=== PATIENT | female | born 1995 | race Caucasian/White ===

== ENCOUNTER 2017-04-04 13:23 | Emergency (ER) | payer BC ==
[2017-04-04] MEDS ORDERED: Acetaminophen TAB* 325 MG PO ONE (16:46)
[2017-04-04] MEDS ORDERED: NS 0.9% 1000 ML* 1,000 ML IV ONE (17:14)
[2017-04-04 17:48] LABS: Hematocrit 44 % (35-47); Hemoglobin 14.6 g/dl (12.0-16.0); Mean Corpuscular HGB Conc 33 g/dl (31-36); Mean Corpuscular Hemoglobin 29 pg (27-31); Mean Corpuscular Volume 87 fL (80-97); Mean Platelet Volume 8 um3 (7.4-10.4); Red Blood Count 5.04 10^6/ul (4.0-5.4); Red Cell Distribution Width 13 % (10.5-15); White Blood Count 11.1 10^3/ul (3.5-10.8)
[2017-04-04 18:07] LABS: ALT 37 U/L (7-52); AST 29 U/L (13-39); Albumin 4.7 g/dL (3.2-5.2); Alkaline Phosphatase 91 U/L (34-104); Anion Gap 8 mmol/L (2-11); BUN/Creatinine Ratio 12.7 (8-20); Blood Urea Nitrogen 9 mg/dL (6-24); CO2 Carbon Dioxide 24 mmol/L (22-32); Calcium 9.7 mg/dL (8.6-10.3); Chloride 104 mmol/L (101-111); EGFR African American 132.4 (>60); EGFR Non-African American 102.9 (>60); Globulin 3.1 g/dL (2-4); Glucose 84 mg/dL (70-100); Potassium 3.8 mmol/L (3.5-5.0); Sodium 136 mmol/L (133-145); Total Protein 7.8 g/dL (6.4-8.9)
[2017-04-04] MEDS ORDERED: Iohexol 350* (CONTRAST) 500 ML MDV IV ONE (18:12)
[2017-04-04 18:49] LABS: Erythrocyte Sed Rate 41 mm/Hr (0-14)
[2017-04-04 19:08] LABS: TSH (Thyroid Stimulating Horm) 2.05 mcIU/mL (0.34-5.60)
--- NOTE | 2017-04-04 19:11 | RAD ---
HISTORY: Blurred vision left eye COMPARISONS: None TECHNIQUE: Multiple contiguous axial CT scans were obtained of the head both before and after the administration of nonionic intravenous contrast timed to the systemic arterial phase of contrast enhancement. Coronal and sagittal multiplanar reformations are submitted for review. Multiple 3-D maximum intensity projection reconstructions are also submitted for review. FINDINGS: RIGHT VERTEBRAL ARTERY: The distal right vertebral artery is unremarkable, without stenosis. LEFT VERTEBRAL ARTERY: The distal left vertebral artery is unremarkable, without stenosis. DOMINANCE: The vertebral arteries are codominant. DISTAL RIGHT CERVICAL INTERNAL CAROTID ARTERY: The distal right cervical internal carotid artery is unremarkable. DISTAL LEFT CERVICAL INTERNAL CAROTID ARTERY: The distal left cervical internal carotid artery is unremarkable. INTRACRANIAL CIRCULATION: There is no aneurysm, vascular malformation, occlusion, or stenosis of the visualized intracranial circulation. The anterior communicating artery complex is clear. There is a origin of the right posterior cerebral artery. VENOUS CIRCULATION: The venous system is unremarkable. PERFUSION: There is no obvious parenchymal perfusion deficit. HEMORRHAGE/INFARCT: There is no hemorrhage or acute infarct. MASSES/SHIFT: There is no mass or shift. EXTRA-AXIAL SPACES: There are no extra-axial fluid collections. SULCI AND VENTRICLES: The sulci and ventricles are normal in size and position for the patient's stated age. CEREBRUM: There are no focal parenchymal abnormalities. BRAINSTEM: There are no focal parenchymal abnormalities. CEREBELLUM: There are no focal parenchymal abnormalities. PARANASAL SINUSES: The paranasal sinuses are clear. ORBITS: The orbits are unremarkable. BONES AND SOFT TISSUE: No bone or soft tissue abnormalities are noted. OTHER: There is no abnormal enhancement. IMPRESSION: 1. NO ACUTE INTRACRANIAL PATHOLOGY. 2. NO ANEURYSM, VASCULAR MALFORMATION, OCCLUSION, OR STENOSIS OF THE VISUALIZED INTRACRANIAL CIRCULATION.
--- NOTE | 2017-04-04 20:21 | ED ---
Ag Aguirre Anna, scribed for Stephen Mills MD on 04/04/17 at 1621 . Headache - HPI Summary HPI Summary: Patient is a 22 y/o female coming to [facility] presenting with an intermittent BAUER that began yesterday. She had a BAUER briefly yesterday. Today, she noticed the pain at 0840. The pain was worse today and accompanied by cloudy, blurred vision in her left eye. The worst of the pain was of severity 6/10, currently 2/ 10 and located in the frontal region. The blurred vision is intermittent. She has additionally had dizziness and neck pain between her shoulders. It hurts to move her head. She denies photophobia, sore throat, sinus pain, rhinorrhea, and cough. She takes Lexapro for bipolar disorder but no other medication. She has not tried any pain medication for this pain. She cannot think of any new activities that might have triggered the pain. She went to the [facility] at 1200 today, and they recommended she be seen in the ED. She has never had a migraine before. She wears glasses. Patient medications have been reviewed this visit. - History Of Current Complaint Chief Complaint: EDHeadache Stated Complaint: HEAD AND NECK PAIN Time Seen by Provider: 04/04/17 16:09 Hx Obtained From: Patient Onset/Duration: Sudden Onset, Started days ago, Still Present, Worse Since - today Currently Pain Is: Current Pain Scale(0-10)= - 2/10 - Allergies/Home Medications Allergies/Adverse Reactions: Allergies Allergy/AdvReac Type Severity Reaction Status Date / Time No Known Allergies Allergy Verified 04/04/17 13:30 Home Medications: Home Medications Escitalopram (NF) [Lexapro (NF)] 10 mg PO DAILY 04/04/17 [History Confirmed 03/18] PMH/Surg Hx/FS Hx/Imm Hx Cardiovascular History: Denies: Hx Myocardial Infarction Respiratory History: Denies: Hx Chronic Obstructive Pulmonary Disease (COPD) Sensory History: Reports: Other Sensory Impairments - Per group segment consultant, white spot when looking at optic nerve, benign Psychiatric History: Reports: Hx Bipolar Disorder, Other Psychiatric Issues/ Disorders - OCD Infectious Disease History: No Infectious Disease History: Denies: Traveled Outside the [place] in Last 30 Days - Family History Known Family History: Negative: Cardiac Disease, Hypertension, Diabetes, Other - Denies known neurological history - Social History Occupation: Student Lives: With Family Alcohol Use: None Substance Use Type: Reports: None Smoking Status (MU): Never Smoked Tobacco Review of Systems Negative: Fever, Chills Positive: Blurred Vision. Negative: Photophobia Negative: Sore Throat, Nasal Discharge Negative: Cough Negative: Nausea Positive: Arthralgia Neurological: Other - dizziness Positive: Headache All Other Systems Reviewed And Are Negative: Yes Physical Exam Triage Information Reviewed: Yes Vital Signs On Initial Exam: Initial Vitals Temp Pulse Resp BP Pulse Ox 98.1 F 78 18 117/91 99 04/04/17 13:27 04/04/17 13:27 04/04/17 13:27 04/04/17 13:27 04/04/17 13:27 Vital Signs Reviewed: Yes Appearance: Positive: Well-Appearing, No Pain Distress Skin: Positive: Warm, Skin Color Reflects Adequate Perfusion, Dry Head/Face: Positive: Normal Head/Face Inspection, Other - NO TEMPORAL ARTERY TENDERNESS Eyes: Positive: EOMI, BELLA, Other: - White areas around both her optic nerves. Full visual tafoya intact for right eye. With the left area, lateral visual field is blurred. ENT: Positive: Normal ENT inspection Neck: Positive: Supple - Full range of motion. Complains of increased pain when turning head to left., Nontender Respiratory/Lung Sounds: Positive: Clear to Auscultation, Breath Sounds Present Cardiovascular: Positive: RRR Abdomen Description: Positive: Nontender, Soft Bowel Sounds: Positive: Present Musculoskeletal: Positive: Normal, Strength/ROM Intact Neurological: Positive: Normal, Sensory/Motor Intact, Alert, Oriented to Person Place, Time Psychiatric: Positive: Affect/Mood Appropriate - Caitlyn Coma Scale Coma Scale Total: 15 Diagnostics - Vital Signs Vital Signs Temp Pulse Resp BP Pulse Ox 04/04/17 15:43 98.1 F 69 16 137/67 100 04/04/17 14:38 98.1 F 69 16 137/67 100 04/04/17 13:27 98.1 F 78 18 117/91 99 - Laboratory Lab Results: Lab Results 04/04/17 04/04/17 04/04/17 Range/Units 17:34 17:34 17:34 WBC 11.1 H (3.5-10.8) 10^3/ul RBC 5.04 (4.0-5.4) 10^6/ul Hgb 14.6 (12.0-16.0) g/dl Hct 44 (35-47) % MCV 87 (80-97) fL MCH 29 (27-31) pg MCHC 33 (31-36) g/dl RDW 13 (10.5-15) % Plt Count 278 (150-450) 10^3/ul MPV 8 (7.4-10.4) um3 Neut % (Auto) 67.8 (38-83) % Lymph % (Auto) 24.2 L (25-47) % [place] % (Auto) 6.4 (1-9) % Eos % (Auto) 1.0 (0-6) % Baso % (Auto) 0.6 (0-2) % Absolute Neuts (auto) 7.5 (1.5-7.7) 10^3/ul Absolute Lymphs (auto) 2.7 (1.0-4.8) 10^3/ul Absolute Monos (auto) 0.7 (0-0.8) 10^3/ul Absolute Eos (auto) 0.1 (0-0.6) 10^3/ul Absolute Basos (auto) 0.1 (0-0.2) 10^3/ul Absolute Nucleated RBC 0.01 10^3/ul Nucleated RBC % 0 ESR 41 H (0-14) mm/Hr INR (Anticoag Therapy) 0.94 (0.89-1.11) APTT 32.5 (26.0-36.3) seconds Sodium 136 (133-145) mmol/L Potassium 3.8 (3.5-5.0) mmol/L Chloride 104 (101-111) mmol/L Carbon Dioxide 24 (22-32) mmol/L Anion Gap 8 (2-11) mmol/L BUN 9 (6-24) mg/dL Creatinine 0.71 (0.51-0.95) mg/dL Est GFR ( Amer) 132.4 (>60) Est GFR (Non-Af Amer) 102.9 (>60) BUN/Creatinine Ratio 12.7 (8-20) Glucose 84 (70-100) mg/dL Calcium 9.7 (8.6-10.3) mg/dL Total Bilirubin 0.50 (0.2-1.0) mg/dL AST 29 (13-39) U/L ALT 37 (7-52) U/L Alkaline Phosphatase 91 (34-104) U/L C-Reactive Protein 13.50 H (< 5.00) mg/L Total Protein 7.8 (6.4-8.9) g/dL Albumin 4.7 (3.2-5.2) g/dL Globulin 3.1 (2-4) g/dL Albumin/Globulin Ratio 1.5 (1-3) TSH 2.05 (0.34-5.60) mcIU/mL Beta HCG, Quant < 0.60 mIU/mL Result Diagrams: 04/04/17 17:34 04/04/17 17:34 Lab Statement: Any lab studies that have been ordered have been reviewed, and results considered in the medical decision making process. - CT Brain CT WO CT Interpretation: No Acute Changes CT Interpretation Completed By: Radiologist - IMPRESSION: 1. NO ACUTE INTRACRANIAL PATHOLOGY. 2. NO ANEURYSM, VASCULAR MALFORMATION, OCCLUSION, OR STENOSIS OF THE VISUALIZED INTRACRANIAL CIRCULATION. Head CTA CT Interpretation: No Acute Changes CT Interpretation Completed By: Radiologist - IMPRESSION: 1. NO ACUTE INTRACRANIAL PATHOLOGY. 2. NO ANEURYSM, VASCULAR MALFORMATION, OCCLUSION, OR STENOSIS OF THE VISUALIZED INTRACRANIAL CIRCULATION. Re-Evaluation - Re-Evaluation First Eval Re-Evaluation Time: 19:57 Comment: Discussed results and plan of care with patient. Patient is agreeable with plan. Headache Course/Dx - Course Course Of Treatment: NO CRITICAL CARE TIME Assessment/Plan: DR CARTER SAW PATIENT IN ED. DISCUSSED RESULTS WITH PATIENT AND MOTHER (ON CELL PHONE). PATIENT IN NO ACUTE DISTRESS TO SUGGEST MENIGITIS. TEMPLES NON TENDER TO PALPATION. SHE REPORTS BAUER AND VISION IMPROVED. DISCUSSED HAVING PATIENT SEE OPHTHALMOLOGY TOMORROW; RETURN TO ED RIGHT AWAY IF WORSE. DISCHARGE HOME STABLE. - Diagnoses Provider Diagnoses: Blurred vision, left eye, Headache - Physician Notifications Discussed Care Of Patient With: Dr. Carter (neurologist) at 1639. He will come see the patient. Dr. Carter (neurologist) at 1711. He recommends a CTA brain and labs. If no acute findings in the ED, patient can follow up with an eye doctor tomorrow. Discharge - Discharge Plan Condition: Stable Disposition: HOME Patient Education Materials: Blurred Vision (ED), General Headache (ED) Referrals: [facility] [Outside] [facility] [Provider Group] LACIE PRESTON MD [Provider Group] Additional Instructions: FOLLOW UP WITH OPHTHALMOLOGY TOMORROW, 04/05/17. FOLLOW UP WITH [facility] TOMORROW, 04/05/17. RETURN TO THE EMERGENCY DEPARTMENT FOR ANY WORSENING OF YOUR CONDITION; HEADACHE PAIN, FEVER, YOU FEEL ILL, WEAKNESS, NUMBNESS, DIFFICULTY WITH SPEECH, EYE PAIN, WORSENING OF VISION OR QUESTIONS OR CONCERNS. The documentation as recorded by the Ag rojas Anna accurately reflects the service I personally performed and the decisions made by me, Stephen Mills MD.
[2017-04-04 20:40] VITALS: BP 122/75
--- NOTE | 2017-04-04 21:24 | CONS ---
NEUROLOGY CONSULTATION: DATE OF CONSULT: 04/04/17 LOCATION: She is in the emergency room. REFERRING PHYSICIAN: Dr. Mills. CHIEF COMPLAINT: Headache, visual changes. 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 It was dull, but would fluctuate and intense overtime. There were no associated visual symptoms at that time and the headache was mainly bifrontal, but occasionally a little bit more in the right frontal region. She went to bed and woke up and got ready for school. By about 8 o'clock, she noted some discomfort near the back of her neck and the midline. By about 10 o'clock, she has noted that her vision seemed off. She felt there is a blurriness to her vision in the left eye and only off to the temporal side. It seemed to fluctuate in its degree, but it was always there. She could always see through it and she could see around it well. She did not feel that her overall visual acuity had dropped. There was no pain behind her eyes or pain with movement of her eyes. She continues with some mid nuchal pain as well as some bifrontal pain. She did not take anything for it. She ended up going to the [facility] [place] and was referred to the emergency room. She has not been ill recently. No fevers, chills, coughs, sore throats, rashes , or gastrointestinal problems. She generally does not get headaches at all. 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 She has not been followed through years and has been very stable and it was felt that either be congenital or some other remote scarring, which has been stable. PAST MEDICAL HISTORY: Only past medical history is for bipolar disorder. MEDICATIONS: Her only medication is Lexapro. ALLERGIES: She does not have any drug allergies. FAMILY HISTORY: Noncontributory. REVIEW OF SYSTEMS: Negative for multiple sclerosis, transient sensory problems , double vision, or weakness of the limbs or incoordination. There is no history of head trauma. She is a twin and premature and spent at least a month if not more in the hospital after . There has been no change in her weight recently. PHYSICAL EXAM: She is a little overweight. Temperature 98.1 temporally, blood pressure 137/67, heart rate in the 70s and regular. Respiratory rate 16, oxygen saturation 100% on room air. Neck is supple. There is no meningismus. Oral mucosa is moist and atraumatic. There is no pharyngeal erythema. Lungs are clear bilaterally. Heart is in a regular rate and rhythm without murmurs. There are no cervical bruits. Extremities are warm. Neurologic exam, pupils react equally from 4.5 down to 2.5 mm to bright light. There is no afferent pupillary defect. Funduscopic exam reveals bright light retinal discoloration mainly around the optic discs bilaterally. I do not see any hemorrhages or papilledema. Eye movements are full. Visual tafoya are full to confrontation. When testing visual tafoya monocularly, she sees normal vision diffusely out of her right eye, but says that left temporal area out of her left eye is a bit blurry. She can count fingers in all 4 quadrants, however , out of both eyes tested monocularly. There is no ptosis. Versions are full. Facial musculature is intact and symmetric. Facial sensation to light touch and pin is intact and symmetric. Palate and tongue appear normal, palate rises symmetrically, and tongue protrudes in the midline. There is no dysarthria. Hearing is intact. Neck strength is normal. Motor exam reveals normal muscle tone and strength proximally and distally in upper and lower extremities. There is no pronator drift. She has a little bit of high frequency sustention tremor in both hands. [id number]-[id number] maneuver is normal. Finger taps are normal. Kccf-[id number] maneuvers are normal bilaterally. Sensory exam in the extremities are intact to vibration, proprioception, light touch, and pin discrimination. Romberg's sign is absent. Reflexes are brisk and symmetric and plantar responses are flexor bilaterally. There is no asterixis or myoclonus. She is alert and oriented to person, place, and time. She is a good detailed historian. Memory is intact and sensorium is clear. She has good attention, concentration, and adequate fund of knowledge. Language is fluent. DIAGNOSTIC STUDIES/LAB DATA: There are no laboratory studies yet to review. There are no imaging studies yet to review. There are no old medical records. 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 She has never dropped in visual acuity or afferent pupillary defect or pain with eye movements, so I do not think she has inflammatory optic neuritis. We recommend that she have routine lab work to also include sedimentation rate, MANOLO, Lyme screen. I recommend she have a CT angiogram of the head to look for an aneurysm, although that seems very unlikely given her clinical presentation. If she has an elevated white blood cell count and develops a fever, she will need a lumbar puncture, but so far, she does not have meningismus and does not have a fever, so I do not see an indication at this point in time. If the above studies are negative and she remains afebrile, I would recommend ophthalmological consultation. [id number]/CPS #: [id number] MTDD
== END 2017-04-04 20:39 | disposition home or self-care (01) ==
LOC: ED 13:23
DX: R51 Headache (principal); H53.8 Other visual disturbances; R42 Dizziness and giddiness
CPT/HCPCS: 36415; 70450; 70496; 80053; 84443; 84702; 85025; 85610; 85652; 85730; 86038; 86140; 86618; 96360; 99283; A9270-GY